=== PATIENT | male | born 1960 | race Caucasian/White ===

== ENCOUNTER 2023-04-11 11:32 | Inpatient (IN) | payer OTHER ==
[~2023-04-11] VITALS: Ht 175.3 cm; Wt 91.6 kg
[~2023-04-11 11:32] MED LIST: DICY10CA PO; ONDA-144 PO
[2023-04-11] MEDS ORDERED: HYDROmorphone HCL 2 MG/ML VL/or syr IV ONE ×2 (11:45→14:45)
[2023-04-11] MEDS ORDERED: ONDANSETRON HCL 4 MG/2 ML VIAL IV ONE (11:45)
[2023-04-11 12:10] LABS: Eosinophils # (auto) 0.1 10 ^3/uL (0-0.8); Eosinophils % (auto) 0.9 % (0.0-7.0); White Blood Cell 7.8 10^3/uL (4.4-10.8)
[2023-04-11 12:11] LABS: Basophils # (auto) 0.1 10 ^3/uL (0-0.2); Basophils % (auto) 0.8 % (0.0-2.0); Hematocrit 44.3 % (41.0-53.0); Lymphocytes # (auto) 1.2 10 ^3/uL (0.4-5.4); Lymphocytes % (auto) 15.9 % (10.0-50.0); Mean Corpuscular Hgb Conc. 33.9 g/dL (32.0-36.0); Mean Corpuscular Volume 103.1 fL (80.0-100.0); Monocytes # (auto) 0.5 10 ^3/uL (0-1.3); Monocytes % (auto) 6.9 % (0.0-12.0); Neutrophils # (auto) 5.9 10 ^3/uL (1.6-8.6); Neutrophils % (auto) 75.5 % (37.0-80.0); Red Cell Distribution Width 12.9 % (11.8-14.3)
[2023-04-11 12:25] LABS: Albumin 2.5 g/dL (3.4-5.0); Calcium 7.1 mg/dL (8.5-10.1); Potassium 4.3 mmol/L (3.5-5.1)
[2023-04-11 12:29] LABS: BUN/Creatinine Ratio 6.7 (10.0-20.0); Bilirubin, Total 0.5 mg/dL (0.2-1.0)
[2023-04-11 12:52] LABS: INR 1.17 (0.9-1.15); Partial Thromboplastin Time 26.8 SEC (24.5-34.5)
[2023-04-11] MEDS ORDERED: NICOTINE 14 MG/24HR TOPICAL PATCH TD ONE (14:45)
[2023-04-11] MEDS ORDERED: HYDROmorphone HCL 2 MG/ML VL/or syr IM ONE (16:15)
[2023-04-11] MEDS ORDERED: DOCUSATE SOD 100 MG CAP PO PRN (16:15)
[2023-04-11] MEDS ORDERED: ONDANSETRON HCL 4 MG/2 ML VIAL IV PRN (16:15)
[2023-04-11] MEDS: ENOXAPARIN SOD 40 MG/0.4 ML SYRINGE SC SCH (17:51)
[2023-04-11] MEDS: hydrALAZINE HCL 20 MG/ML VL IV SCH (17:52)
[2023-04-11] MEDS: SODIUM CHLORIDE 0.9% 1,000 ML IV SCH (18:36)
[2023-04-11] MEDS: NEOMYCIN-BACITRACIN-POLYM UNITDOSE PKG TOP OINT TOP SCH (18:59)
[2023-04-11] MEDS: HYDROmorphone HCL 2 MG/ML VL/or syr IV PRN ×2 (19:45→23:19)
[2023-04-12] VITALS (7 sets, daily range): BP systolic 128–164; BP diastolic 71–100
[2023-04-12 01:21] LABS: Urine Bacteria NONE SEEN /hpf (None Seen); Urine Blood Negative /uL (Negative); Urine Hyaline Cast FEW /lpf (0 - 2); Urine Mucus FEW (None Seen); Urine Specific Gravity 1.019 (1.001-1.035); Urine WBC 1 /hpf (0 - 3)
[2023-04-12] MEDS: HYDROmorphone HCL 2 MG/ML VL/or syr IV PRN ×4 (02:49→12:01)
[2023-04-12] MEDS: SODIUM CHLORIDE 0.9% 1,000 ML IV SCH ×3 (02:50→17:15)
[2023-04-12] MEDS: hydrALAZINE HCL 20 MG/ML VL IV SCH ×5 (02:50→23:43)
[2023-04-12 06:56] LABS: Albumin 2.3 g/dL (3.4-5.0); Calcium 7.2 mg/dL (8.5-10.1)
[2023-04-12 06:57] LABS: Basophils # (auto) 0 10 ^3/uL (0-0.2); Eosinophils # (auto) 0 10 ^3/uL (0-0.8); Monocytes # (auto) 0.7 10 ^3/uL (0-1.3)
[2023-04-12 06:59] LABS: Basophils % (auto) 0.4 % (0.0-2.0); Eosinophils % (auto) 0.2 % (0.0-7.0); Hematocrit 41.2 % (41.0-53.0); Lymphocytes # (auto) 1.2 10 ^3/uL (0.4-5.4); Lymphocytes % (auto) 14.2 % (10.0-50.0); Mean Corpuscular Hemoglobin 35.4 pg (28.0-32.0); Mean Corpuscular Hgb Conc. 34.1 g/dL (32.0-36.0); Mean Corpuscular Volume 103.8 fL (80.0-100.0); Neutrophils # (auto) 6.3 10 ^3/uL (1.6-8.6); Neutrophils % (auto) 77.2 % (37.0-80.0); Nucleated Red Blood Cells % 0.1 %; Red Blood Cells 3.97 10^6/uL (4.5-5.90); Red Cell Distribution Width 12.9 % (11.8-14.3); White Blood Cell 8.2 10^3/uL (4.4-10.8)
[2023-04-12 07:00] LABS: BUN/Creatinine Ratio 10.3 (10.0-20.0); Bilirubin, Total 0.7 mg/dL (0.2-1.0); Total Protein 6.4 g/dL (6.4-8.2)
[2023-04-12] MEDS: ENOXAPARIN SOD 40 MG/0.4 ML SYRINGE SC SCH (10:00)
[2023-04-12] MEDS: NEOMYCIN-BACITRACIN-POLYM UNITDOSE PKG TOP OINT TOP SCH ×2 (10:31→21:25)
[2023-04-12] MEDS ORDERED: BUPIVACAINE 0.5% P/F INJ 10 ML VIAL ONE (12:26)
[2023-04-12] MEDS ORDERED: TRANEXAMIC ACID 20 ML ONE (13:20)
[2023-04-12] MEDS ORDERED: BUPIVACAINE 0.25% INJ 50ML VIAL ONE (13:20)
[2023-04-12] MEDS ORDERED: VANCOMYCIN HCL 1000 MG VL ONE (13:21)
[2023-04-12] MEDS ORDERED: MORPHINE SULF PF 5 MG/10 ML VIAL ONE (13:51)
[2023-04-12] MEDS ORDERED: KETAMINE HCL 10 ML ONE (13:51)
[2023-04-12] MEDS ORDERED: fentaNYL CITRATE 100 MCG/2 ML VL ONE (13:51)
[2023-04-12] MEDS ORDERED: ONDANSETRON HCL 4 MG/2 ML VIAL ONE (13:52)
[2023-04-12] MEDS ORDERED: PROPOFOL 10 MG/ML 20 ML IV ONE (13:52)
[2023-04-12] MEDS ORDERED: MIDAZOLAM HCL 2MG/2ML 2ml VIAL (1mg/ml) ONE ×2 (13:52→15:08)
[2023-04-12] MEDS ORDERED: GLYCOPYRROLATE 0.2 MG/ML 1ML VIAL ONE (13:52)
[2023-04-12] MEDS ORDERED: ePHEDrine SULFATE 50 MG/ML AMP ONE (13:52)
[2023-04-12] MEDS ORDERED: ceFAZolin 1GM/50ML 100 ML IV ONE (14:50)
[2023-04-12] MEDS ORDERED: DexAMETHasone SOD PHOS 10MG/1ML VIAL INJ IV PRN (16:45)
[2023-04-12] MEDS ORDERED: NALOXONE HCL 0.4 MG/ML VIAL IV PRN (16:45)
[2023-04-12] MEDS ORDERED: diphenhdrAMINE HCL 50 MG/1 ML VL IV PRN (16:45)
[2023-04-12] MEDS ORDERED: ONDANSETRON HCL 4 MG/2 ML VIAL IV PRN ×2 (16:45)
[2023-04-12] MEDS: ceFAZolin 2 GM/D5W100ml 100 ML IV SCH (21:18)
[2023-04-12] MEDS: NICOTINE 14 MG/24HR TOPICAL PATCH TD SCH (21:22)
[2023-04-12] MEDS: HYDROcodone-ACET 10/325MG TAB PO PRN (21:23)
[2023-04-12] MEDS: SODIUM CHLOR 0.9% PF (SALINE LOCK) 10ML VIAL/SYR IV SCH (21:24)
[2023-04-13] VITALS (20 sets, daily range): BP systolic 122–161; BP diastolic 69–94
[2023-04-13] MEDS: SODIUM CHLORIDE 0.9% 1,000 ML IV SCH ×2 (01:17→09:55)
[2023-04-13] MEDS: HYDROcodone-ACET 10/325MG TAB PO PRN ×3 (01:44→11:37)
[2023-04-13] MEDS: LACTATED RINGER'S 1,000 ML IV SCH ×3 (02:23→12:30)
[2023-04-13 05:35] LABS: Basophils # (auto) 0 10 ^3/uL (0-0.2); Eosinophils # (auto) 0 10 ^3/uL (0-0.8); Hemoglobin 11.9 g/dL (13.5-17.5); Monocytes # (auto) 0.4 10 ^3/uL (0-1.3); Red Cell Distribution Width 12.6 % (11.8-14.3)
[2023-04-13 05:41] LABS: Hematocrit 35.1 % (41.0-53.0); Lymphocytes # (auto) 0.5 10 ^3/uL (0.4-5.4); Mean Corpuscular Hemoglobin 35.2 pg (28.0-32.0); Mean Corpuscular Hgb Conc. 33.9 g/dL (32.0-36.0); Mean Corpuscular Volume 103.9 fL (80.0-100.0); Monocytes % (auto) 4.5 % (0.0-12.0); Neutrophils # (auto) 8.2 10 ^3/uL (1.6-8.6); Neutrophils % (auto) 90.5 % (37.0-80.0); Red Blood Cells 3.38 10^6/uL (4.5-5.90); White Blood Cell 9.1 10^3/uL (4.4-10.8)
[2023-04-13] MEDS: ceFAZolin 2 GM/D5W100ml 100 ML IV SCH (05:42)
[2023-04-13] MEDS: hydrALAZINE HCL 20 MG/ML VL IV SCH ×3 (05:48→18:00)
[2023-04-13] MEDS: SODIUM CHLOR 0.9% PF (SALINE LOCK) 10ML VIAL/SYR IV SCH ×3 (05:48→20:25)
[2023-04-13 05:50] LABS: Potassium 4.1 mmol/L (3.5-5.1)
[2023-04-13 05:54] LABS: BUN/Creatinine Ratio 17.6 (10.0-20.0); Calcium 7.2 mg/dL (8.5-10.1)
[2023-04-13] MEDS: KETOROLAC TROMETH 30 MG/ML 1ML VIAL IV PRN (08:32)
[2023-04-13] MEDS ORDERED: NICOTINE 14 MG/24HR TOPICAL PATCH TD SCH (10:00)
[2023-04-13] MEDS: ENOXAPARIN SOD 40 MG/0.4 ML SYRINGE SC SCH (10:21)
[2023-04-13] MEDS: NICOTINE 14 MG/24HR TOPICAL PATCH TD SCH (10:22)
[2023-04-13] MEDS: NEOMYCIN-BACITRACIN-POLYM 15GM TOP OINT TOP SCH ×2 (13:26→20:29)
[2023-04-13] MEDS: GABAPENTIN 300 MG CAP PO SCH ×2 (15:10→20:25)
[2023-04-13] MEDS: HYDROmorphone HCL 2 MG/ML VL/or syr IV PRN ×2 (15:15→20:25)
[2023-04-14] MEDS: hydrALAZINE HCL 20 MG/ML VL IV SCH ×3 (00:34→12:00)
[2023-04-14] MEDS: HYDROmorphone HCL 2 MG/ML VL/or syr IV PRN ×5 (00:34→22:29)
[2023-04-14] MEDS: SODIUM CHLOR 0.9% PF (SALINE LOCK) 10ML VIAL/SYR IV SCH ×3 (04:45→22:23)
[2023-04-14] MEDS: GABAPENTIN 300 MG CAP PO SCH ×3 (04:50→22:23)
[2023-04-14 05:00] VITALS: BP 104/67
[2023-04-14] MEDS: ENOXAPARIN SOD 40 MG/0.4 ML SYRINGE SC SCH (08:48)
[2023-04-14] MEDS: NICOTINE 14 MG/24HR TOPICAL PATCH TD SCH (08:49)
[2023-04-14] MEDS: HYDROcodone-ACET 10/325MG TAB PO PRN (08:49)
[2023-04-14] MEDS: NEOMYCIN-BACITRACIN-POLYM 15GM TOP OINT TOP SCH ×2 (08:50→22:25)
[2023-04-14 09:00] VITALS: BP 140/89
[2023-04-14 13:00] VITALS: BP 144/83
[2023-04-14] MEDS ORDERED: hydrALAZINE HCL 20 MG/ML VL IV PRN (16:30)
[2023-04-14 17:00] VITALS: BP 134/83
[2023-04-14 22:00] VITALS: BP 137/77
[2023-04-15] VITALS (7 sets, daily range): BP systolic 109–154; BP diastolic 68–85
[2023-04-15] MEDS: HYDROmorphone HCL 2 MG/ML VL/or syr IV PRN ×6 (02:49→22:23)
[2023-04-15] MEDS: GABAPENTIN 300 MG CAP PO SCH ×3 (06:45→21:14)
[2023-04-15] MEDS: SODIUM CHLOR 0.9% PF (SALINE LOCK) 10ML VIAL/SYR IV SCH ×3 (06:45→21:17)
[2023-04-15] MEDS: ENOXAPARIN SOD 40 MG/0.4 ML SYRINGE SC SCH (09:22)
[2023-04-15] MEDS: NICOTINE 14 MG/24HR TOPICAL PATCH TD SCH (09:24)
[2023-04-15] MEDS: NEOMYCIN-BACITRACIN-POLYM 15GM TOP OINT TOP SCH ×2 (09:25→21:19)
[2023-04-15] MEDS ORDERED: HYDR-4798 PO (11:14)
[2023-04-15] MEDS: KETOROLAC TROMETH 30 MG/ML 1ML VIAL IV PRN (21:15)
[2023-04-16] MEDS: HYDROmorphone HCL 2 MG/ML VL/or syr IV PRN ×5 (03:41→16:11)
[2023-04-16 05:00] VITALS: BP 146/79
[2023-04-16] MEDS: KETOROLAC TROMETH 30 MG/ML 1ML VIAL IV PRN ×2 (05:00→13:30)
[2023-04-16] MEDS: GABAPENTIN 300 MG CAP PO SCH ×2 (05:00→14:59)
[2023-04-16] MEDS: SODIUM CHLOR 0.9% PF (SALINE LOCK) 10ML VIAL/SYR IV SCH ×2 (05:01→14:00)
[2023-04-16 08:00] VITALS: BP 124/71
[2023-04-16] MEDS: ENOXAPARIN SOD 40 MG/0.4 ML SYRINGE SC SCH (10:01)
[2023-04-16] MEDS: NICOTINE 14 MG/24HR TOPICAL PATCH TD SCH (10:03)
[2023-04-16] MEDS: NEOMYCIN-BACITRACIN-POLYM 15GM TOP OINT TOP SCH (10:04)
[2023-04-16 12:00] VITALS: BP 128/73
[2023-04-16] MEDS ORDERED: KETOROLAC TROMETH 30 MG/ML 1ML VIAL IV ONE (15:45)
[2023-04-16 16:00] VITALS: BP 153/88
[2023-04-16 16:41] VITALS: BP 122/75
== END 2023-04-16 17:52 | disposition home health service (06) | DRG 480 ==
LOC: ER 11:32 → EDBD 11:32 → OVERFLOW 16:32 → CENTRAL 04-12 14:00 → TELE-CENTR 04-12 19:52
PROVIDERS: ADMIT Nurse Practitioner Family; ATTEND Internal Medicine
PROC: 0QS734Z Reposition Left Upper Femur with Internal Fixation Device, Percutaneous Approach (ICD-10-PCS; principal; 2023-04-12 15:02)
DX: S72.142A Displaced intertrochanteric fracture of left femur, initial encounter for closed fracture (principal); I50.41 Acute combined systolic (congestive) and diastolic (congestive) heart failure; E44.1 Mild protein-calorie malnutrition; W01.0XXA Fall on same level from slipping, tripping and stumbling without subsequent striking against object, initial encounter; I11.0 Hypertensive heart disease with heart failure; S50.312A Abrasion of left elbow, initial encounter; R74.01 Elevation of levels of liver transaminase levels; F17.210 Nicotine dependence, cigarettes, uncomplicated; Z86.718 Personal history of other venous thrombosis and embolism; Y93.89 Activity, other specified; Y92.89 Other specified places as the place of occurrence of the external cause; Y99.8 Other external cause status; Z68.29 Body mass index [BMI] 29.0-29.9, adult
CPT/HCPCS: 36415; 70450; 71045; 72192; 73080; 73501; 76000; 80048; 80053; 81001; 85025; 85610; 85730; 93306; 93970; 96372; 96374; 96375; 96376; 97110; 97116; 97163; 97530; G0378; J0690; J1885; J2250; J2405; J2704; J3490